=== PATIENT | female | born 1940 | race Caucasian/White ===

== ENCOUNTER 2018-04-28 13:36 | Emergency (ER) | payer MEDICARE ==
[2018-04-28 14:20] LABS: BASOPHILS % (AUTO) 0.5 % (0.0-5.0); HEMATOCRIT 33.7 % (36-48); LYMPHOCYTES % (AUTO) 10.4 % (21.0-51.0); MEAN CORPUSCULAR HEMOGLOBIN 28.1 pg (27.0-33.0); MEAN CORPUSCULAR VOLUME 82.6 fL (79-99); MONOCYTES % (AUTO) 4.5 % (3.0-13.0); NEUTROPHILS % (AUTO) 84.6 % (40.0-77.0); PLATELET COUNT (AUTO) 157 K/uL (130-400); RED BLOOD CELL COUNT(AUTO) 4.08 MIL/uL (4.00-5.50); RED CELL DISTRIBUTION WIDTH 14.6 % (11.0-15.5); WHITE BLOOD COUNT (AUTO) 12.6 K/uL (4.8-10.8)
[2018-04-28 14:25] LABS: POTASSIUM 3.5 mmol/L (3.5-5.1)
[2018-04-28] MEDS ORDERED: ISOVUE-370 50ML VIAL IV ONE (16:29)
[2018-04-28] MEDS ORDERED: METHYLPREDNISOLONE SOD SUCC 125MG/2ML VIAL ONE (17:41)
== END 2018-04-28 18:06 | disposition home or self-care (01) ==
LOC: EDH 13:36
DX: R13.10 Dysphagia, unspecified (principal); R50.9 Fever, unspecified
CPT/HCPCS: 36415; 70492; 80048; 85025; 87880; 96374; 99285; J2930; Q9967

== ENCOUNTER → 2021-04-28 | Outpatient (CLI) | payer MEDICARE | END | disposition home or self-care (01) | LOC: SHCH 08:34 | PROVIDERS: ATTEND Internal Medicine Cardiovascular Disease | DX: I65.23 Occlusion and stenosis of bilateral carotid arteries (principal) | CPT/HCPCS: 93880 ==

== ENCOUNTER → 2022-12-10 | Outpatient (CLI) | payer MEDICARE | END | disposition home or self-care (01) | LOC: SHCH 13:26 | PROVIDERS: ATTEND Internal Medicine Cardiovascular Disease | DX: I87.2 Venous insufficiency (chronic) (peripheral) (principal); I73.9 Peripheral vascular disease, unspecified | CPT/HCPCS: 93925; 93970 ==

== ENCOUNTER 2023-02-04 07:05 | Day surgery (SDC) | payer MEDICARE ==
[2023-02-02 14:26] LABS: BASOPHILS % (AUTO) 0.7 % (0.0-5.0); EOSINOPHILS % (AUTO) 2.8 % (0.0-8.0); HEMATOCRIT 36.4 % (36-48); LYMPHOCYTES % (AUTO) 19.4 % (21.0-51.0); MEAN CORPUSCULAR HEMOGLOBIN 27.4 pg (27.0-33.0); MEAN CORPUSCULAR HGB CONC 31.3 g/dL (32.0-36.0); MEAN CORPUSCULAR VOLUME 87.5 fL (79-99); MONOCYTES % (AUTO) 7.3 % (3.0-13.0); NEUTROPHILS % (AUTO) 69.5 % (40.0-77.0); PLATELET COUNT (AUTO) 205 K/uL (130-400); RED BLOOD CELL COUNT(AUTO) 4.16 MIL/uL (4.00-5.50); RED CELL DISTRIBUTION WIDTH 14.6 % (11.0-15.5)
[2023-02-02 14:30] LABS: CREATININE 0.7 mg/dL (0.5-1.5); POTASSIUM 4.8 mmol/L (3.5-5.1)
[2023-02-02 14:33] LABS: INR 0.94 (0.85-1.15); PROTHROMBIN TIME 10.3 SEC (9.6-11.6)
[2023-02-02 14:34] LABS: PARTIAL THROMBOPLASTIN TIME 25.3 SEC (26.3-35.5)
[2023-02-02 14:37] LABS: APPEARANCE,URINE CLEAR (CLEAR); BILIRUBIN,URINE NEGATIVE (NEGATIVE); COLOR,URINE YELLOW (YELLOW); GLUCOSE, URINE (UA) NEGATIVE (NEGATIVE); KETONES,URINE NEGATIVE (NEGATIVE); LEUKOCYTE ESTERASE ,URINE 75 Leu/uL (NEGATIVE); NITRATE,URINE NEGATIVE (NEGATIVE); OCCULT BLOOD,URINE SMALL (NEGATIVE); PROTEIN,URINE NEGATIVE (NEGATIVE); UROBILINOGEN,URINE 0.2 mg/dL (0.2-1.0)
[2023-02-02 14:50] VITALS: BP 159/67
[2023-02-02 15:42] LABS: B-TYPE NATRIURETIC PEPTIDE 246 pg/mL (0-100)
[2023-02-02 16:02] LABS: BACTERIA,URINE RARE /HPF (None Seen); MUCUS,URINE RARE LPF (None Seen); SQUAMOUS EPITHELIAL CELL,UR RARE /HPF (0-2)
[2023-02-04] VITALS (12 sets, daily range): BP systolic 111–152; BP diastolic 56–74
[~2023-02-04] VITALS: Ht 157.5 cm; Wt 49.6 kg
[~2023-02-04 07:05] MED LIST: 0.9% NACL 500ML IV.SOLN 500 ML IV ONE; AEC81 PO; CLOP75TA32 PO; METO-391 PO; OXYB10TA30 PO; ROPI2TAB7 PO
[2023-02-04] MEDS ORDERED: 0.9%NACL 1000ML 1,000 ML IV ONE (07:52)
[2023-02-04] MEDS ORDERED: LIDOCAINE HCL 400MG/20ML VIAL ONE (09:52)
[2023-02-04] MEDS ORDERED: MIDAZOLAM HCL 1 MG/ML 2ML VIAL ONE (09:52)
[2023-02-04] MEDS ORDERED: BIVALIRUDIN 250 MG/VIAL IV ONE (09:52)
[2023-02-04] MEDS ORDERED: NITROGLYCERIN 50MG VIAL ONE (09:52)
[2023-02-04] MEDS ORDERED: IOHEXOL 350 MG/ML 100ML INFUS..BTL IV ONE (09:52)
[2023-02-04] MEDS ORDERED: FENTANYL CITRATE PF 50 MCG/1 ML 2ML VIAL ONE (09:54)
[2023-02-04] MEDS ORDERED: HEPARIN 10,000 UNIT/10ML (1,000 UNIT/ML) VIAL ONE (10:20)
[2023-02-04] MEDS ORDERED: NITROGLYCERIN 0.4 MG SL TAB SL PRN (11:00)
[2023-02-04] MEDS ORDERED: METOPROLOL TARTRATE 1 MG/ML 5ML VIAL IV PRN (11:00)
[2023-02-04] MEDS ORDERED: GLUCAGON 1MG KIT 1 MG ML IM PRN (11:00)
[2023-02-04] MEDS ORDERED: 0.9%NACL 1000ML 1,000 ML IV SCH (11:00)
[2023-02-04] MEDS ORDERED: DEXTROSE 50%-WATER 50 ML DISP.SYRIN IV PRN (11:00)
== END 2023-02-04 16:47 | disposition home or self-care (01) ==
LOC: DAH 07:05
PROVIDERS: ATTEND Internal Medicine Cardiovascular Disease
DX: I25.110 Atherosclerotic heart disease of native coronary artery with unstable angina pectoris (principal); I11.0 Hypertensive heart disease with heart failure; I50.32 Chronic diastolic (congestive) heart failure; E78.5 Hyperlipidemia, unspecified; I87.1 Compression of vein; M19.90 Unspecified osteoarthritis, unspecified site; I87.2 Venous insufficiency (chronic) (peripheral); Z90.710 Acquired absence of both cervix and uterus; Z90.89 Acquired absence of other organs; Z90.49 Acquired absence of other specified parts of digestive tract; Z98.890 Other specified postprocedural states; Z82.3 Family history of stroke; Z83.3 Family history of diabetes mellitus; Z82.49 Family history of ischemic heart disease and other diseases of the circulatory system; Z79.82 Long term (current) use of aspirin; Z79.899 Other long term (current) drug therapy; Z79.01 Long term (current) use of anticoagulants
CPT/HCPCS: 80048; 83880; 85025; 85610; 85730; 87088; 81001; 36415; 71045; 93005; 93458; 92978; 92979; C1887; C1894 ×2; C1760; C1753; C1769; J3010; J3490 ×2; J7030; J1644 ×2; J2250; Q9967; A4215; A4222; A4221; A4663; A4216; A4606; Q9965 ×2; A4223 ×3; 99156; 99157; J0583

== ENCOUNTER 2023-02-05 09:41 | Observation (INO) | payer MEDICARE ==
[2023-02-05] VITALS (8 sets, daily range): BP systolic 94–160; BP diastolic 50–91
[~2023-02-05] VITALS: Ht 157.5 cm; Wt 48.5 kg
[~2023-02-05 09:41] MED LIST changes: -0.9% NACL 500ML IV.SOLN 500 ML IV ONE
[2023-02-05 10:15] LABS: BASOPHILS % (AUTO) 0.6 % (0.0-5.0); EOSINOPHILS % (AUTO) 2.8 % (0.0-8.0); LYMPHOCYTES % (AUTO) 23.7 % (21.0-51.0); MEAN CORPUSCULAR HEMOGLOBIN 27.5 pg (27.0-33.0); MEAN CORPUSCULAR HGB CONC 32.2 g/dL (32.0-36.0); MEAN CORPUSCULAR VOLUME 85.3 fL (79-99); MONOCYTES % (AUTO) 6.3 % (3.0-13.0); NEUTROPHILS % (AUTO) 66.4 % (40.0-77.0); PLATELET COUNT (AUTO) 184 K/uL (130-400); RED BLOOD CELL COUNT(AUTO) 3.75 MIL/uL (4.00-5.50); RED CELL DISTRIBUTION WIDTH 14.6 % (11.0-15.5); WHITE BLOOD COUNT (AUTO) 5.1 K/uL (4.8-10.8)
[2023-02-05 10:24] LABS: CREATININE 0.7 mg/dL (0.5-1.5); POTASSIUM 3.8 mmol/L (3.5-5.1)
[2023-02-05 10:29] LABS: ALBUMIN 3.2 g/dL (3.5-5.0); TOTAL PROTEIN, SERUM 5.6 g/dL (6.0-8.3)
[2023-02-05] MEDS ORDERED: MORPHINE 2 MG SYG IVP PRN (11:30)
[2023-02-05] MEDS ORDERED: POTASSIUM CHLORIDE 10% ELIXIR 20 MEQ/15 ML UDCUP PO PRN (11:30)
[2023-02-05] MEDS ORDERED: LIDOCAINE HCL-MPF 1% 2ML VIAL IV PRN (11:30)
[2023-02-05] MEDS ORDERED: ACETAMINOPHEN 325 MG TAB PO PRN (11:30)
[2023-02-05] MEDS ORDERED: KCL 20 MEQ ERTAB PO PRN (11:30)
[2023-02-05] MEDS ORDERED: POTASSIUM CHLORIDE 20MEQ/100ML 100 ML IV PRN (11:30)
[2023-02-05] MEDS ORDERED: HYDROCODONE/ACETAMINOPHEN 5/325 MG TAB PO PRN (11:30)
[2023-02-05 14:34] LABS: APPEARANCE,URINE CLEAR (CLEAR); BILIRUBIN,URINE NEGATIVE (NEGATIVE); COLOR,URINE COLORLESS (YELLOW); GLUCOSE, URINE (UA) NEGATIVE (NEGATIVE); KETONES,URINE NEGATIVE (NEGATIVE); LEUKOCYTE ESTERASE ,URINE NEGATIVE Leu/uL (NEGATIVE); NITRATE,URINE NEGATIVE (NEGATIVE); PROTEIN,URINE NEGATIVE (NEGATIVE); UROBILINOGEN,URINE 0.2 mg/dL (0.2-1.0)
[2023-02-05 14:44] LABS: MUCUS,URINE RARE LPF (None Seen); RBC,URINE 0-1 /HPF (0-1)
[2023-02-05] MEDS ORDERED: THROMBIN-JMI 5000 UNIT/VIAL TP ONE (16:41)
[2023-02-05] MEDS ORDERED: LIDOCAINE HCL MPF 1% 5ML VIAL ONE (17:16)
[2023-02-05] MEDS ORDERED: ASPIRIN 81 MG EC TAB PO SCH (21:00)
[2023-02-05] MEDS ORDERED: ROPINIROLE HCL 1 MG TABLET PO SCH (21:00)
[2023-02-05] MEDS: METOPROLOL SUCCINATE 50 MG TAB.SR.24H PO SCH (21:41)
[2023-02-06 04:20] VITALS: BP 111/50
[2023-02-06 08:00] VITALS: BP 131/53
[2023-02-06] MEDS: METOPROLOL SUCCINATE 50 MG TAB.SR.24H PO SCH (08:31)
[2023-02-06] MEDS ORDERED: CLOPIDOGREL 75MG TAB PO SCH (09:00)
[2023-02-06] MEDS ORDERED: OXYBUTYNIN 5 MG TAB.SR.24H PO SCH (09:00)
== END 2023-02-06 11:30 | disposition home or self-care (01) ==
LOC: EDH 09:41 → EDHIP 11:25 → 4DH 15:52
PROVIDERS: ADMIT Internal Medicine; ATTEND Internal Medicine
DX: I71.40 Abdominal aortic aneurysm, without rupture, unspecified (principal); M79.81 Nontraumatic hematoma of soft tissue; I25.10 Atherosclerotic heart disease of native coronary artery without angina pectoris; I10 Essential (primary) hypertension; Z90.710 Acquired absence of both cervix and uterus; Z95.5 Presence of coronary angioplasty implant and graft; Z79.899 Other long term (current) drug therapy
CPT/HCPCS: 99284; 80053; 85025; 86850; 86900; 86901; 81001; 36415; 36002; 76942; 76882 ×2; A4215; G0378 ×24; J3490 ×2

== ENCOUNTER 2023-08-21 08:44 | Emergency (ER) | payer MEDICARE ==
[~2023-08-21] VITALS: Ht 157.5 cm; Wt 48.5 kg
[~2023-08-21 08:44] MED LIST changes: +EVOL140S2 SQ; +LOPE2 PO; +LOTE5DRO14 OD; +MOXI3DRO12 OS; +RANO500T2 PO; +ROPI2TAB53 PO; -ROPI2TAB7 PO; +[UNRECOGNIZED DRUG - CODE] OP
[2023-08-21 08:45] VITALS: BP 150/73; PULSE 69; RESP 20
[2023-08-21 09:25] LABS: SARS-CoV-2, RNA, NAAT NEGATIVE SARS CoV-2 (NEGATIVE)
[2023-08-21 09:31] LABS: INFLUENZA TYPE A Negative For Type A (NEGATIVE); INFLUENZA TYPE B Negative For Type B (NEGATIVE); RAPID GROUP A STREP negative (NEGATIVE)
[2023-08-21 11:59] LABS: BASOPHILS # (AUTO) 0.04 K/uL (0.00-0.20); BASOPHILS % (AUTO) 0.5 % (0.0-5.0); EOSINOPHILS # (AUTO) 0.15 K/uL (0.00-0.70); EOSINOPHILS % (AUTO) 1.7 % (0.0-8.0); HEMATOCRIT 29.6 % (36-48); IMMATURE GRANULOCYTE ABSOLUTE 0.02 K/uL (0-1); LYMPHOCYTES # (AUTO) 0.9 K/uL (1.0-4.8); LYMPHOCYTES % (AUTO) 10.3 % (21.0-51.0); MEAN CORPUSCULAR HEMOGLOBIN 26.2 pg (27.0-33.0); MEAN CORPUSCULAR HGB CONC 31.8 g/dL (32.0-36.0); MEAN CORPUSCULAR VOLUME 82.5 fL (79-99); MONOCYTES # (AUTO) 0.6 K/uL (0.1-1.0); MONOCYTES % (AUTO) 6.5 % (3.0-13.0); NEUTROPHILS % (AUTO) 80.8 % (40.0-77.0); PLATELET COUNT (AUTO) 182 K/uL (130-400); RED BLOOD CELL COUNT(AUTO) 3.59 MIL/uL (4.00-5.50); RED CELL DISTRIBUTION WIDTH 15.2 % (11.0-15.5); WHITE BLOOD COUNT (AUTO) 8.7 K/uL (4.8-10.8)
[2023-08-21 12:12] LABS: CREATININE 0.7 mg/dL (0.5-1.5)
[2023-08-21 12:16] LABS: ALBUMIN 3.3 g/dL (3.5-5.0); BILIRUBIN,TOTAL 0.3 mg/dL (0.2-1.0); TOTAL PROTEIN, SERUM 6.7 g/dL (6.0-8.3)
[2023-08-21] MEDS ORDERED: AMOX1TAB16 PO (13:29)
[2023-08-21] MEDS ORDERED: IBUPROFEN 600 MG TABLET PO ONE (13:30)
[2023-08-21] MEDS ORDERED: AMOX/CLAV 875/125MG TAB PO ONE (13:30)
== END 2023-08-21 13:49 | disposition home or self-care (01) ==
LOC: EDH 08:44
DX: K11.20 Sialoadenitis, unspecified (principal); I10 Essential (primary) hypertension; Z79.02 Long term (current) use of antithrombotics/antiplatelets; Z79.82 Long term (current) use of aspirin; Z90.49 Acquired absence of other specified parts of digestive tract; Z95.5 Presence of coronary angioplasty implant and graft; Z20.822 Contact with and (suspected) exposure to COVID-19
CPT/HCPCS: 99283; 87635; 80053; 85025; 87040 ×2; 87880; 87804 ×2; 83605; 36415; C9803

== ENCOUNTER → 2023-12-14 | Outpatient (CLI) | payer MEDICARE ==
[~2023-12-14] MED LIST changes: +AMOX1TAB16 PO
== END | disposition home or self-care (01) ==
LOC: SHCH 13:34
PROVIDERS: ATTEND Internal Medicine Cardiovascular Disease
DX: I87.2 Venous insufficiency (chronic) (peripheral) (principal); I87.1 Compression of vein
CPT/HCPCS: 93970

== ENCOUNTER → 2023-12-16 | Outpatient (CLI) | payer MEDICARE ==
[2023-12-16 13:13] LABS: CHOLESTEROL 149 mg/dL (<200); HDL CHOLESTEROL 91 mg/dL (35-85); LDL DIRECT 55 mg/dL (0-99); TRIGLYCERIDES 32 mg/dL (30-200)
== END | disposition home or self-care (01) ==
LOC: LAB 08:13
PROVIDERS: ATTEND Internal Medicine Cardiovascular Disease
DX: I10 Essential (primary) hypertension (principal); E78.5 Hyperlipidemia, unspecified
CPT/HCPCS: 36415; 80061

== ENCOUNTER → 2024-03-13 | Outpatient (CLI) | payer MEDICARE | END | disposition home or self-care (01) | LOC: SHCH 11:05 | PROVIDERS: ATTEND Internal Medicine Cardiovascular Disease | DX: Z09 Encounter for follow-up examination after completed treatment for conditions other than malignant neoplasm (principal); I87.2 Venous insufficiency (chronic) (peripheral) | CPT/HCPCS: 93971 ==

== ENCOUNTER → 2024-06-05 | Outpatient (CLI) | payer MEDICARE | END | disposition home or self-care (01) | LOC: SHCH 15:24 | PROVIDERS: ATTEND Internal Medicine Cardiovascular Disease | DX: I08.3 Combined rheumatic disorders of mitral, aortic and tricuspid valves (principal); R60.9 Edema, unspecified; I87.2 Venous insufficiency (chronic) (peripheral) | CPT/HCPCS: 93306 ==

== ENCOUNTER 2025-01-01 14:24 | Emergency (ER) | payer MEDICARE ==
[~2025-01-01] VITALS: Ht 157.5 cm; Wt 56.7 kg
--- NOTE | 2025-01-01 14:46 | ERN ---
ED Note History of Present Illness Stated Complaint: LEFT LEG SWELLING Chief Complaint: Lower Extremity Pain/Injury Time Seen by MD: 14:24 Dictation: PATIENT IS AN 84-YEAR-OLD FEMALE HERE WITH LEFT CALF PAIN SWELLING FOR THE LAST SEVERAL DAYS. SHE HAD NO SHORTNESS A BREATH NO FEVER NO CHILLS NO NAUSEA VOMITING. SENT BY HER PRIMARY CARE DOCTOR TO RULE OUT DVT. 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 [facility] Allergies: Coded Allergies: No Known Drug Allergies (Unverified Allergy, Unknown, 06/17/18) Home Meds Active Scripts Amoxicillin/Potassium Clav (Amox Tr-K Clv 875-125 mg Tab) 875 Mg-125 Mg Tablet, 1 EACH PO BID for 10 Days, #20 TAB Prov:KESHAWN PRECIADO EDITOR DICTIONARY 08/21/23 Reported Medications Evolocumab (Repatha Syringe) 140 Mg/1 Ml Syringe, 140 MG SQ [id number], SYRINGE 04/04/23 Neomy Sulf/Bacitrac Zn/Poly/Hc (Rick-Polycin Hc Eye Ointment) 3.5 Gm Oint...g., 3.5 GM OP HS 04/01/23 Loperamide HCl (Imodium) 2 Mg Cap, 2 MG PO AD PRN for DIARRHEA, CAP 03/29/23 Moxifloxacin HCl (Moxifloxacin) 3 Ml Drops, 1 DROP OS QID, DROP 03/29/23 Loteprednol Etabonate (Loteprednol Etabonate) 5 Ml Drops.susp, 1 DROP OD BID, DROP 03/29/23 Ranolazine (RANEXA) 500 Mg Tab.er.12h, 500 MG PO BID, TAB 03/29/23 Ropinirole HCl (Ropinirole HCl) 2 Mg Tablet, 2 MG PO HS, TAB 02/02/23 Clopidogrel Bisulfate (Clopidogrel) 75 Mg Tablet, 75 MG PO DAILY, TAB 02/02/23 Oxybutynin Chloride (Oxybutynin Chloride ER) 10 Mg Tab.er.24, 10 MG PO DAILY 02/02/23 Aspirin (ASPIRIN 81 MG ECTAB) 81 Mg Ectab, 81 MG PO HS, TAB.EC 02/02/23 Metoprolol Succinate (Metoprolol Succinate) 50 Mg Tab.er.24h, 50 MG PO BID, TAB 02/02/23 Past Medical History Past Medical History: CAD, Hypertension Additional Past Medical Hx: VERTIGO Surgical History: CABG Surgical History Other: HERNIA, CARDIAC STENTS Family History: Negative Social History: Negative, Lives with family History: Not Applicable RN Note Reviewed/Agreed w/PFSH: Yes Review of System Dictation CONSTITUTIONAL: NEGATIVE EXCEPT FOR HPI HEAD/FACE: NEGATIVE EXCEPT FOR HPI EENT: NEGATIVE EXCEPT FOR HPI RESPIRATORY: NEGATIVE EXCEPT FOR HPI GASTROINTESTINAL/ABDOMINAL: NEGATIVE EXCEPT FOR HPI GENITOURINARY: NEGATIVE EXCEPT FOR HPI MUSCULOSKELETAL: NEGATIVE EXCEPT FOR HPI LEFT CALF AND THIGH SWELLING TENDERNESS INTEGUMENTARY: NEGATIVE EXCEPT FOR HPI NEUROLOGICAL/PSYCH: NEGATIVE EXCEPT FOR HPI HEMATOLOGIC/LYMPHATIC: NEGATIVE EXCEPT FOR HPI ALL SYSTEMS NEGATIVE, EXCEPT NOTED ABOVE. 13 POINT REVIEW OF SYSTEMS ASSESSED AND ALL NEGATIVE EXCEPT FOR ABOVE. Initial Vital Sign VS Vital Signs Date Time Temp Pulse Resp B/P (MAP) Pulse Ox O2 Delivery O2 Flow Rate FiO2 01/01/25 14:24 98.1 85 20 158/76 99 Room Air 0 01/01/25 16:37 21 Physical Exam Dictation VITAL SIGNS REVIEWED GENERAL APPEARANCE: ALERT, ORIENTED X 3, MILD ACUTE DISTRESS, WELL DEVELOPED, NOURISHED. HEAD AND FACE: NON-TRAUMATIC. EYES: PERRL, PINK CONJUNCTIVAS, EYELID NO TRAUMA, ANTERIOR CHAMBER WITH ARCUS SENILIS. EARS: PINNAS INTACT AND NO SIGNS OF TRAUMA OR ERYTHEMA EAR CANALS CLEAR AND NO DISCHARGE TM NO ERYTHEMA NOSE: NO DISCHARGE, NO BLEEDING. OROPHARYNX: MOUTH NORMAL, TONGUE PINK, PHARYNX CLEAR,NO ERYTHEMA, TONSILS NO EXUDATES, NO ABSCESSES NOTED, MUCOUS MEMBRANE MOIST NECK: SUPPLE, NON-TENDER, NO THYROMEGALY, NO MASSES, NO JVD, NO BRUITS BREAST:DEFERRED CHEST:NO TENDERNESS, NO CREPITUS, NO PARADOXICAL MOVEMENT, NO RETRACTIONS LUNGS:CLEAR, WELL-VENTILATED, SYMMETRIC, NO RALES, NO WHEEZING, NO RHONCHI, NO STRIDOR, GOOD BREATH SOUNDS BILATERALLY HEART: REGULAR RATE, REGULAR RHYTHM, NO MURMUR, NO GALLOPS VASCULAR: NO PERIPHERAL EDEMA, ABDOMEN: SOFT, POSITIVE BOWEL SOUNDS, NONDISTENDED, NO GUARDING, NONTENDER, NO REBOUND, NO MASSES NO HEPATOMEGALY, NO SPLENOMEGALY, NO JAUREGUI'S SIGN, NO HERNIAS. RECTAL: DEFERRED GENITAL: DEFERRED NEUROLOGICAL: NORMAL SPEECH, MOTOR FUNCTION INTACT, SENSORY FUNCTION INTACT MUSCULOSKELETAL: FULL RANGE OF MOTION LEFT LOWER EXTREMITY. LEFT CALF TENDERNESS AND SWELLING WITH PALPATION NO ERYTHEMA. DISTAL NEUROVASCULAR CMS INTACT SKIN: COLOR PINK, DRY, NO TURGOR, NO RASH, NO LACERATIONS, NO ABRASIONS, NO CONTUSIONS. LYMPHATIC: DEFERRED Results (Laboratory/Radiology) Laboratory/Radiology LEFT LEG DOPPLER ULTRASOUND NEGATIVE FOR DVT Labs Reviewed?: Yes ED Course ED Course Orders Procedure Category Date Status Time Us Venous Doppler US 01/01/25 Resulted Unilateral 14:42 Vital Signs Date Time Temp Pulse Resp B/P (MAP) Pulse Ox O2 Delivery O2 Flow Rate FiO2 01/01/25 16:37 98.1 85 20 158/76 99 Room Air* 0 21 01/01/25 14:24 98.1 85 20 158/76 99 Room Air 0 Medical Decision Making [facility] MEDICAL DISCHARGE MAKING BASED ON DOPPLER ULTRASOUND OF LEFT LEG TO RULE OUT DVT DOPPLER ULTRASOUND NEGATIVE PATIENT DISCHARGED HOME WITH LEG PAIN TOLD TYLENOL OR MOTRIN [id number] NEEDED FOR PAIN DX & DISP Disposition: Discharge Departure Impression: Primary Impression: Localized swelling of left lower leg Condition: Stable Additional Instructions: FOLLOW-UP WITH PRIMARY CARE PROVIDER IN 1 TO 2 DAYS. TAKE MEDICATIONS DIRECTED HERE IN THE EMERGENCY ROOM. OKAY TO CONTINUE HOME MEDICATIONS UNLESS OTHERWISE DISCUSSED DURING YOUR VISIT IN THE EMERGENCY ROOM TODAY. RETURN TO YOUR NEAREST EMERGENCY ROOM IF SYMPTOMS WORSEN OR IF THERE IS NO IMPROVEMENT. CALL 911 IF YOU NEED IMMEDIATE ASSISTANCE. TAKE TYLENOL OR MOTRIN [id number] NEEDED AND IF NO CONTRAINDICATIONS ARE PRESENT. INCREASE ORAL HYDRATION. A WOUND CULTURE OR URINE CULTURE WAS ORDERED HERE IN THE [facility] RO[facility] DEPARTMENT PLEASE FOLLOW-UP WITH PRIMARY CARE PROVIDER AND ADVISE THEM TO GET REPEAT PORTS FROM OUR FACILITY. IF YOU HAD ANY ZEINAB WRAP/SPLINTS THAT WERE APPLIED HERE, PLEASE DO NOT REMOVE THEM UNTIL YOU SEE YOUR PRIMARY CARE OR SPECIALTY. DIET AND ACTIVITY TOLERATED. SEE YOUR PRIMARY CARE DOCTOR FOR FOLLOW UP. Referrals: [facility] (PCP) Time of Disposition: 17:35 I have reviewed the case, and I agree with, Diagnosis and Plan LEANN BARBOSA NP Jan 01, 2025 14:46
--- NOTE | 2025-01-01 15:42 | HMCIMG ---
US VENOUS DOPPLER UNILATERAL HISTORY: Left calf swelling COMPARISON: None TECHNIQUE: Left lower extremity venous Doppler ultrasound study was performed. FINDINGS: The left common femoral, femoral, popliteal, and posterior tibial veins are visualized. Normal flow with augmentation and compressibilities are demonstrated. There is thrombus noted in the left small saphenous vein consistent with superficial thrombophlebitis. IMPRESSION: 1. No evidence of deep venous thrombosis is seen. There is thrombus noted in the left small saphenous vein consistent with superficial thrombophlebitis.
[2025-01-01 16:37] VITALS: BP 158/76; PULSE 85; RESP 20; TEMP 98; O2SAT 99
== END 2025-01-01 18:01 | disposition home or self-care (01) ==
LOC: EDH 14:24
DX: R22.42 Localized swelling, mass and lump, left lower limb (principal); M79.662 Pain in left lower leg; I10 Essential (primary) hypertension; I25.10 Atherosclerotic heart disease of native coronary artery without angina pectoris; Z79.02 Long term (current) use of antithrombotics/antiplatelets; Z79.82 Long term (current) use of aspirin; Z79.899 Other long term (current) drug therapy; Z95.1 Presence of aortocoronary bypass graft; Z95.5 Presence of coronary angioplasty implant and graft
CPT/HCPCS: 93971; 99284